=== PATIENT | female | born 1965 | race Caucasian/White ===

== ENCOUNTER 2022-04-11 15:28 | Emergency (ER) | payer OTHER ==
[~2022-04-11] VITALS: Ht 167.6 cm; Wt 65.9 kg
[2022-04-11] MEDS ORDERED: EPIPEN 2-PAK1 MG/ML MR (16:08)
[2022-04-11] MEDS ORDERED: NATURE'S BLEND1 TA6 PO (16:09)
[2022-04-11 16:32] VITALS: BP 136/102
== END 2022-04-11 16:30 | disposition home or self-care (01) ==
LOC: ED 15:28
DX: T63.461A Toxic effect of venom of wasps, accidental (unintentional), initial encounter (principal)